=== PATIENT | female | born 1940 | race Caucasian/White ===

== ENCOUNTER 2017-11-08 14:57 | Emergency (ER) | payer OTHER ==
[2017-11-08 15:18] VITALS: BP 133/65; PULSE 77; TEMP 98.2; BMI 23.1
[2017-11-08] MEDS ORDERED: ACETAMINOPHEN 325 MG TABLET (FP) PO ONE (15:50)
--- NOTE | 2017-11-08 15:50 | PDOC ---
History of Present Illness <Gretel Klein - Last Filed: 11/08/17 17:40> - History of Present Illness Initial Comments: 11/08/17 16:05 Patient is a 77 F with no reported PMHx , who presents with left shoulder injury s/p mechanical fall. Patient states she was walking down the sidewalk, when she was trying to avoid the construction and states her right show got stuck and she tripped and fell onto outstretched hands. She states the construction workers helped her up and she was able to walk home. She is complaining of left upper arm weakness and pain. She denies hitting her head, loc, loss of vision, blurry vision, chest pain, palpitations, sob, dizziness. Patient denies taking any pain medication. She says that she tried to ice the area but the weight of the ice was too much to bear. Surgery: cyst removal from in mouth Hospitalizations: denies Allergies: denies Medications: denies talking regular medications <Carol Ann Franks - Last Filed: 11/08/17 17:44> - General Chief Complaint: Injury Stated Complaint: LEFT SHOULDER INJURY Time Seen by Provider: 11/08/17 15:04 Past History - Past Medical History COPD: No - Suicide/Smoking/Psychosocial Hx Smoking History: Never smoked Have you smoked in the past 12 months: No Information on smoking cessation initiated: No Hx Alcohol Use: No Drug/Substance Use Hx: No Substance Use Type: None <Gretel Klein - Last Filed: 11/08/17 17:40> <Carol Ann Franks - Last Filed: 11/08/17 17:44> - Past Medical History Allergies/Adverse Reactions: Allergies Allergy/AdvReac Type Severity Reaction Status Date / Time No Known Allergies Allergy Verified 11/08/17 15:03 Home Medications: Ambulatory Orders NK [No Known Home Medication] 11/08/17 Review of Systems - Review of Systems Comments:: 11/08/17 16:27 GENERAL/CONSTITUTIONAL: No fever or chills. No weakness. HEAD, EYES, EARS, NOSE AND THROAT: No change in vision. No ear pain or discharge. No sore throat. GASTROINTESTINAL: No nausea, vomiting, diarrhea or constipation. GENITOURINARY: No dysuria, frequency, or change in urination. CARDIOVASCULAR: No chest pain or shortness of breath. RESPIRATORY: No cough, wheezing, or hemoptysis. MUSCULOSKELETAL: +right upper extremity pain No neck or back pain. SKIN: No rash NEUROLOGIC: No headache, vertigo, loss of consciousness, or change in strength/ sensation. ENDOCRINE: No increased thirst. No abnormal weight change. HEMATOLOGIC/LYMPHATIC: No anemia, easy bleeding, or history of blood clots. ALLERGIC/IMMUNOLOGIC: No hives or skin allergy. <Carol Ann Franks - Last Filed: 11/08/17 17:44> *Physical Exam - Vital Signs Last Vital Signs Temp Pulse Resp BP Pulse Ox 98.2 F 77 19 133/65 99 11/08/17 14:59 11/08/17 14:59 11/08/17 14:59 11/08/17 14:59 11/08/17 14:59 <Gretel Klein - Last Filed: 11/08/17 17:40> - Vital Signs Last Vital Signs Temp Pulse Resp BP Pulse Ox 98.2 F 77 19 133/65 99 11/08/17 14:59 11/08/17 14:59 11/08/17 14:59 11/08/17 14:59 11/08/17 14:59 - Physical Exam Comments: 11/08/17 16:06 GENERAL: Awake, alert, and fully oriented, in no acute distress HEAD: No signs of trauma EYES: PERRLA, EOMI, sclera anicteric, conjunctiva clear ENT: Auricles normal inspection, hearing grossly normal, nares patent, oropharynx clear without exudates. Moist mucosa NECK: Normal ROM, supple, no lymphadenopathy, JVD, or masses LUNGS: Breath sounds equal, clear to auscultation bilaterally. No wheezes, and no crackles HEART: Regular rate and rhythm, normal S1 and S2, no murmurs, rubs or gallops ABDOMEN: Soft, nontender, normoactive bowel sounds. No guarding, no rebound. No masses EXTREMITIES: Tender across mid shaft of humerus. Limited rom, secondary to pain. Radial pulses intact. Muscle strength 5/5 . No pain of supination/ pronation of LUE, no pain of clavicle, no pain across the spine of the scapula. No edema. No clubbing or cyanosis. No cords, erythema, or tenderness NEUROLOGICAL: Cranial nerves II through XII grossly intact. Normal speech, normal gait SKIN: Warm, Dry, normal turgor, no rashes or lesions noted. <Carol Ann Franks - Last Filed: 11/08/17 17:44> Medical Decision Making - Medical Decision Making 11/08/17 16:01 a/p: 77yo female with mechanical fall on the side walk and L shoulder/humerus pain -suspect humerus mid shaft fracture -did not take pain meds -voluntary guarding -will obtain xrays of shoulder, humerus, elbow -will give pain meds -will put in a sling for comfort -discussed plan with the patient -pt did not have head injury or LOC -no neck or back ttp -Ambulated with a steady gait 11/08/17 17:40 imaging shows prox humerus fracture pt neurovasc intact will place sling and recommended PMD and orthopedic follow up answered all qeustions. Pt states she only wants to take tylenol for pain sister in law at the bedside to assist the patient home pt stable for d/c to home <Gretel Klein - Last Filed: 11/08/17 17:40> *DC/Admit/Observation/Transfer - Discharge Dispostion Admit: No - Attestations Physician Attestion: 11/08/17 17:43 I, Dr. Gretel Klein DO, attest that this document has been prepared under my direction and personally reviewed by me in its entirety. I further attest, that it accurately reflects all work, treatment, procedures and medical decision -making performed by me. <Gretel Klein - Last Filed: 11/08/17 17:40> - Attestations Scribe Attestion: 11/08/17 17:44 Documentation prepared by Carol Ann Franks, acting as medical research tech for Gretel Klein DO. <Carol Ann Franks - Last Filed: 11/08/17 17:44> Diagnosis at time of Disposition: Proximal humeral fracture - Discharge Dispostion Disposition: HOME Condition at time of disposition: Stable - Referrals Referrals: Salvatore Christianson MD [Staff Physician] - Duncan Mtz MD [Staff Physician] - - Patient Instructions Printed Discharge Instructions: How to Use a Sling, DI for Fracture Additional Instructions: Please take tylenol every 4-6 hours as needed for pain. Please apply ice to the injured site (on for 20 min and then remove the ice for 20 min). Please keep the arm elevated and in a sling. Please make an appointment to follow up with the orthopedist by the end of the week. Please also make an appointment to follow up with the PMD in 1 week. Please return to the ED with any further concerns.
[2017-11-08] MEDS ORDERED: ACETAMINOPHEN 325 MG TABLET (FP) ONE (16:05)
== END 2017-11-08 18:00 | disposition home or self-care (01) ==
LOC: FER 14:57
DX: S42.202A Unspecified fracture of upper end of left humerus, initial encounter for closed fracture (principal); W18.39XA Other fall on same level, initial encounter; Y93.89 Activity, other specified; Y92.410 Unspecified street and highway as the place of occurrence of the external cause
CPT/HCPCS: 73060-TC-LT-FY; 99281-25

== ENCOUNTER 2017-11-14 13:11 | Emergency (ER) | payer OTHER ==
[2017-11-14 13:29] VITALS: BP 139/77; PULSE 79; TEMP 98.5; BMI 21.4
--- NOTE | 2017-11-14 14:03 | PDOC ---
History of Present Illness - General Chief Complaint: Injury Stated Complaint: LEFT ARM BRUISING AFTER INJURY Time Seen by Provider: 11/14/17 13:14 - History of Present Illness Initial Comments: 11/14/17 14:03 77 F seen here on 11/08 for L humerus fracture, presenting to ED due to concern regarding bruising. Pt denies any new pain or swelling. She expresses concern because over the past few days, the bruising has spread from her shoulder down to her elbow and forearm. She denies any new numbness, denies weakness in her hand. Denies any new injury. Pt not on any blood thinners. Past History - Past Medical History Allergies/Adverse Reactions: Allergies Allergy/AdvReac Type Severity Reaction Status Date / Time No Known Allergies Allergy Verified 11/08/17 15:03 Home Medications: Ambulatory Orders Acetaminophen [Tylenol] 650 mg PO PRN PRN 11/14/17 COPD: No - Suicide/Smoking/Psychosocial Hx Smoking History: Never smoked Have you smoked in the past 12 months: No Information on smoking cessation initiated: No Hx Alcohol Use: No Drug/Substance Use Hx: No Substance Use Type: None Review of Systems - Review of Systems Comments:: 11/14/17 14:04 "GENERAL/CONSTITUTIONAL: No fever or chills. No weakness. HEAD, EYES, EARS, NOSE AND THROAT: No change in vision. No ear pain or discharge. No sore throat. CARDIOVASCULAR: No chest pain or shortness of breath. RESPIRATORY: No cough, wheezing, or hemoptysis. GASTROINTESTINAL: No nausea, vomiting, diarrhea or constipation. GENITOURINARY: No dysuria, frequency, or change in urination. MUSCULOSKELETAL: No joint or muscle swelling or pain. No neck or back pain. SKIN: + bruising to L elbow and forearm NEUROLOGIC: No headache, vertigo, loss of consciousness, or change in strength/ sensation. ENDOCRINE: No increased thirst. No abnormal weight change. HEMATOLOGIC/LYMPHATIC: No anemia, easy bleeding, or history of blood clots. ALLERGIC/IMMUNOLOGIC: No hives or skin allergy. " *Physical Exam - Vital Signs Last Vital Signs Temp Pulse Resp BP Pulse Ox 98.5 F 79 20 139/77 99 11/14/17 13:12 11/14/17 13:12 11/14/17 13:12 11/14/17 13:12 11/14/17 13:12 - Physical Exam Comments: 11/14/17 14:05 "GENERAL: Awake, alert, and fully oriented, in no acute distress HEAD: No signs of trauma EYES: PERRLA, EOMI, sclera anicteric, conjunctiva clear ENT: Auricles normal inspection, hearing grossly normal, nares patent, oropharynx clear without exudates. Moist mucosa NECK: Nontender, no stepoffs, Normal ROM, supple, no lymphadenopathy, JVD, or masses LUNGS: Breath sounds equal, clear to auscultation bilaterally. No wheezes, and no crackles HEART: Regular rate and rhythm, normal S1 and S2, no murmurs, rubs or gallops ABDOMEN: Soft, nontender, normoactive bowel sounds. No guarding, no rebound. No masses EXTREMITIES: LUE with deformity of proximal humerus, ecchymosis extending from shoulder to forearm, pt neurovascularly intact distally, with good pulses, no snuffbox tenderness NEUROLOGICAL: Cranial nerves II through XII intact. 5/5 strength and sensation in all extremities, Normal speech, normal gait, normal cerebellar function SKIN: Warm, Dry, normal turgor, no rashes or lesions noted. " Medical Decision Making - Medical Decision Making 11/14/17 14:06 77 F with L humerus fx, presenting to ER with concern for bruising but found on exam to have expected amount of ecchymosis for such an injury. No signs of compartment syndrome, extremity neurovascularly intact. No signs of new injury. - F/u ortho Pt is well appearing, with normal vitals. Clinically stable for DC at this time. I discussed the physical exam findings, ancillary test results and final diagnoses with the patient. I answered all of the patient's questions. The patient was satisfied with the care received and felt comfortable with the discharge plan and treatment plan. The patient agrees to follow up with the primary care physician within 24-72 hours. *DC/Admit/Observation/Transfer Diagnosis at time of Disposition: Proximal humeral fracture - Discharge Dispostion Disposition: HOME Admit: No - Referrals Referrals: Daren Lugo MD [Staff Physician] - - Patient Instructions Printed Discharge Instructions: How to Use a Sling Additional Instructions: Please follow up with your orthopedic surgeon as scheduled on . Continue using your sling as directed. If you experience worsening pain, swelling, numbness, weakness, or any other concerning symptoms, return to the ER immediately. - Post Discharge Activity - Attestations Physician Attestion: 11/14/17 14:08 I, Dr. Duncan Fernandez MD, attest that this document has been prepared under my direction and personally reviewed by me in its entirety. I further attest, that it accurately reflects all work, treatment, procedures and medical decision -making performed by me.
== END 2017-11-14 14:10 | disposition home or self-care (01) ==
LOC: FER 13:11
DX: S42.202D Unspecified fracture of upper end of left humerus, subsequent encounter for fracture with routine healing (principal); X58.XXXD Exposure to other specified factors, subsequent encounter
CPT/HCPCS: 99281-25

== ENCOUNTER 2021-10-01 17:59 | Emergency (ER) | payer OTHER ==
[2021-10-01 18:31] VITALS: BP 185/107; PULSE 60; TEMP 97.7; BMI 25.7
== END 2021-10-01 18:28 | disposition home or self-care (01) ==
LOC: FER 17:59
DX: I10 Essential (primary) hypertension (principal)
CPT/HCPCS: 99282-25